=== PATIENT | female | born 1970 | race African-American/Black ===

== ENCOUNTER 2016-06-02 10:30 | Day surgery (SDC) | payer OTHER ==
[2016-05-30 14:34] VITALS: BMI 27.3
[2016-06-02] MEDS ORDERED: ACETAMINOPHEN 325 MG TABLET (FP) PO PRN (12:20)
[2016-06-02] MEDS ORDERED: IBUPROFEN 800 MG/8 ML IJ IVPB PRN (12:20)
--- NOTE | 2016-06-02 12:20 | HP ---
History & Physical Update - History History: No Change - Physical Physical: No Change - Assessment Assessment: No Change - Plan Plan: No Change (AUB, for D&c, HTA endomtrial ablation and IUD removal)
[2016-06-02] MEDS ORDERED: LACTATED RINGERS SOLUTION 1,000 ML IV SCH ×2 (12:30→13:30)
[2016-06-02] MEDS ORDERED: ONDANSETRON 4 MG/2 ML VIAL IVPUSH PRN (13:27)
[2016-06-02] MEDS ORDERED: PROMETHAZINE HCL 25 MG/1 ML VIAL IVPUSH PRN (13:27)
[2016-06-02] MEDS ORDERED: oxyCODONE HCL 5 MG TABLET PO PRN (13:27)
[2016-06-02 14:43] VITALS: PULSE 65
[2016-06-02 14:47] VITALS: TEMP 98.2
[2016-06-02 16:07] VITALS: BP 110/63
--- NOTE | 2016-06-05 09:22 | PATH ---
Surgical Pathology Report Patient Name: MISBAH QUINN [facility]. Rec. #: [id number] /Age/Gender: 1970 (Age: 45) / F Account: [id number] Location: [facility] SURGICAL Taken: 06/02/2016 Received: 06/02/2016 Reported: 06/05/2016 Physicians: Sherlyn Ernandez M.D. Specimen(s) Received A: IUD B: ENDOMETRIAL CURETTINGS Clinical History Intramural leiomyoma of uterus, abnormal vaginal bleeding Final Diagnosis A. 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 B. ENDOMETRIUM, CURETTING: BENIGN SQUAMOUS EPITHELIUM, ENDOCERVICAL MUCOSA WITH CHRONIC INFLAMMATION, AND SCANT BENIGN GLANDULAR EPITHELIUM SUGGESTIVE OF INACTIVE TO ATROPHIC ENDOMETRIUM. NO ENDOMETRIAL HYPERPLASIA OR CARCINOMA IDENTIFIED. Electronically Signed Chris Grfifin M.D. Gross Description A. Received fresh labeled "IUD," is a 3 cm in length T-shaped device with an attached string, consistent with an intrauterine device. No soft tissue is present. No sections are submitted, gross only. B. Received in formalin labeled "endometrial curettings," is a 0.9 x 0.9 x 0.2 cm aggregate of cordova soft tissue fragments admixed with mucus. The formalin is filtered and the specimen is entirely submitted in one cassette. 06/02/2016 [facility]06/02/2016
--- NOTE | 2016-06-16 09:16 | OP ---
Operative Note - Note: Operative Date: 06/02/16 Pre-Operative Diagnosis: abnormal uterine bleeding, intramural leiomyoma, presence of IUD Operation: IUD removal, D&C, HTA endometrial ablation Findings: normal female anatomy/genitalia Post-Operative Diagnosis: Same as Pre-op Surgeon: Sherlyn Ernandez Anesthesiologist/WATER MECHANIC: Halley Ojeda MD Anesthesia: General Specimens Removed: IUD, endometrial currettings Estimated Blood Loss (mls): 10 Operative Report Dictated: Yes
--- NOTE | 2016-06-16 11:33 | OP ---
DATE OF OPERATION: 06/02/2016 PREOPERATIVE DIAGNOSIS: Abnormal uterine bleeding, intramural fibroid, and presence of intrauterine device. POSTOPERATIVE DIAGNOSIS: Abnormal uterine bleeding, intramural fibroid, and presence of intrauterine device. PROCEDURE: Removal of intrauterine device, dilation and curettage, and HTA endometrial ablation. SURGEON: Sherlyn Ernandez DO ANESTHESIA: General by Dr. Halley Ojeda MD ESTIMATED BLOOD LOSS: 10 mL. COMPLICATIONS: None. SPECIMENS REMOVED: Included IUD and endometrial curetting sent to Pathology for permanent evaluation. Sponge and instrument count correct at the end of the case. DISPOSITION: Stable to PACU. BRIEF HISTORY AND PROCEDURE: The patient is a 45-year-old female who has had an approximately 1- to 2-year history of abnormal uterine bleeding. The patient underwent an abdominal myomectomy in the past and a dilation and curettage, which did help - but only briefly - with her symptoms. The patient has also failed medical therapy with the Mirena intrauterine device. The patient continues to have abnormal uterine bleeding and was consented for an HTA endometrial ablation in the office. The patient was admitted to [facility] on June 02, 2016. Consents were reconfirmed. DESCRIPTION OF PROCEDURE: The patient and the surgeon were mutually identified , and the patient was then taken back to the operating room where she was given general anesthesia by Dr. Halley Ojeda without difficulty. She was prepped and draped in a dorsal lithotomy position. A hard timeout was performed. A speculum was placed inside the vagina. The IUD strings were appreciated and removed. The IUD was removed without difficulty with a ring forcep. A brief dilation and curettage with a sharp curette was completed, and the specimen was sent off to pathology for permanent evaluation. The cervix was then serially dilated to accommodate an operative hysteroscope, which was advanced to the uterus up to the fundus. Bilateral tubal ostia were noted. No intercavitary lesions were appreciated. The HTA endometrial device was then connected and initiated. The ablation occurred without incident. All instruments were then removed from the vagina. Excellent hemostasis was achieved at the tenaculum sites and minimal bleeding was noted from the cervical os. The patient was then awoken from anesthesia and recovering in stable condition in the PACU after the procedure.' Sponge and instrument counts were reported correct at the end of the case. SHERLYN ERNANDEZ DO /[id number] MTDJulio
== END 2016-06-02 16:10 | disposition home or self-care (01) ==
LOC: JASU-SURG 10:30
PROVIDERS: ATTEND Obstetrics & Gynecology
PROC: 0U5B8ZZ Destruction of Endometrium, Via Natural or Artificial Opening Endoscopic (ICD-10-PCS; principal; 2016-06-02 12:00)
PROC: 0UPD7HZ Removal of Contraceptive Device from Uterus and Cervix, Via Natural or Artificial Opening (ICD-10-PCS; 2016-06-02 12:00)
DX: N93.9 Abnormal uterine and vaginal bleeding, unspecified (principal); D25.1 Intramural leiomyoma of uterus; Z30.432 Encounter for removal of intrauterine contraceptive device
CPT/HCPCS: 88300-TC; 88305-TC; 94760